=== PATIENT | female | born 1975 | race Caucasian/White ===

== ENCOUNTER → 2023-01-23 06:59 | Outpatient (CLI) | payer BC, SELFPAY ==
--- NOTE | ~2023-01-23 | MR_ITS ---
MRI of the right knee Clinical history: Pain Technique: Coronal proton density and proton density-weighted images, sagittal proton-density and T2 fat-sat images, and axial proton-density fat-saturated images were acquired. Findings: Anterior and posterior cruciate ligament are intact. Medial collateral ligament and the lat eral collateral ligament complex are intact. Popliteus tendon is intact. Medial and lateral menisci are intact, without evidence of tear. There is mild chondral thinning of the medial femoral condyle. Articular cartilage in the lateral com partment is intact. There is mild chondromalacia of the patellofemoral compartment. Extensor mechanism is intact. Moderate to large joint effusion present. No Jett's cyst. There is mil d edematous change of the popliteus muscle belly. Impression: Moderate to large joint effusion, uncertain etiology. Consider joint aspiration as indicated. Mild muscle strain of the popliteus muscle belly. Mild chondromalacia of the medial and patellofemoral compartments, as above. No ligamentous injury or meniscal tear seen. Reviewed, dictated and finalized at location . [facility] Impression: Moderate to large joint effusion, uncertain etiology. Consider joint aspiration as indicated. Mild muscle strain of the popliteus muscle belly. Mild chondromalacia of the medial and patellofemoral compartments, as above. No ligamentous injury or meniscal tear seen.
== END ==
PROVIDERS: PCP Family Medicine; Visit Provider Family Medicine
DX: M25.461 Effusion, right knee (principal)
CPT/HCPCS: 73721